=== PATIENT | female | born 1965 | race Caucasian/White ===

== ENCOUNTER 2017-08-09 08:49 | Emergency (ER) | END 2017-08-09 11:48 | disposition home or self-care (01) ==

== ENCOUNTER 2018-03-20 09:14 | Emergency (ER) | END 2018-03-20 10:49 | disposition home or self-care (01) ==

== ENCOUNTER 2018-05-14 15:52 | Emergency (ER) | END 2018-05-14 16:26 | disposition home or self-care (01) ==

== ENCOUNTER 2018-06-25 09:13 | Emergency (ER) | END 2018-06-25 10:50 | disposition home or self-care (01) ==

== ENCOUNTER 2018-07-27 17:24 | Emergency (ER) | payer MEDICAID ==
[~2018-07-27] VITALS: Ht 167.6 cm; Wt 88.0 kg
[~2018-07-27 17:24] MED LIST: BEN25 PO; CEPH-443 PO; DICL50TA11 PO; EPIN0.3P4 INJ; HYDR-4011 PO; IBUP-1542 PO; MELO15TA30 PO; NAPR-985 PO; NO MEDS; PRED20TA PO; SULF1TAB31 PO; TRAM50TA2 PO
[2018-07-27 17:29] VITALS: Ht 167.6 cm; Wt 88.0 kg
[2018-07-27] MEDS ORDERED: SOD CHLORIDE 0.9% 500 ML IV STA (21:29)
[2018-07-27] MEDS ORDERED: ONDANSETRON 4 MG INJ IV STA (21:29)
[2018-07-27] MEDS ORDERED: morphine 4 MG/ML VIAL IV STA (21:29)
[2018-07-27] MEDS ORDERED: MULTI PO (22:54)
[2018-07-28 00:23] VITALS: BP 151/80; PULSE 72; RESP 18
[2018-07-28] MEDS ORDERED: LORA-441 PO (00:37)
--- NOTE | 2018-07-28 00:44 | ERD ---
ER Documentation Chief Complaint Chief Complaint Complains of a headache with chest pain x 3 days HPI 53-year-old female, with a headache which has been for the past 3 days. She says she been under a lot of stress lately. Headache is mild to moderate intensity no exacerbating relieving factors. She denies any john chest pain bu t complains of palpitations when she feels stressed he denies any focal neurologic complaints. Denies any shortness of breath. Denies any other current issues. ROS All systems reviewed and are negative except as per history of present illness. Medications Home Meds Active Scripts Lorazepam* (Ativan*) 0.5 Mg Tablet, 0.5 MG PO Q8H PRN for ANXIETY, #10 TAB Prov:SIMRAN DAVILA 07/28/18 Ibuprofen* (Motrin*) 600 Mg Tab, 600 MG PO Q6, #20 TAB Prov:ARGENTINA CARRASCO MD 08/09/17 Reported Medications Multivitamins* (Theragran*) 1 Tab Tab, 1 TAB PO DAILY, TAB 07/27/18 Discontinued Reported Medications [No Meds] No Conflict Check 10/11/12 Discontinued Scripts Meloxicam* (Mobic*) 15 Mg Tablet, 15 MG PO DAILY, #30 TAB Prov:PAULINA GARCIA PA-C 06/25/18 Hydrocodone/Acetaminophen ([place] 5-325 Tablet) 1 Each Tablet, 1 TAB PO QHS PRN for PAIN, #7 TAB Prov:JORGE STARK MD 05/14/18 Sulfamethoxazole/Trimethoprim* (Bactrim Ds* Tablet) 1 Each Tablet, 1 TAB PO BID, #14 TAB Prov:JORGE STARK MD 05/14/18 Cephalexin* (Keflex*) 500 Mg Capsule, 500 MG PO BID for 7 Days, CAP Prov:JORGE STARK MD 05/14/18 Naproxen* (Naprosyn*) 500 Mg Tablet, 500 MG PO BID PRN for PAIN AND/OR INFLAMMATION, #30 TAB Prov:BOBBY BETH PA-C 03/20/18 Tramadol HCl (Tramadol HCl) 50 Mg Tablet, 50 MG PO Q6 PRN for PAIN, #20 TAB Prov:BOBBY BETH PA-C 03/20/18 Tramadol HCl (Tramadol HCl) 50 Mg Tablet, 50 MG PO Q4 PRN for PAIN, #15 TAB Prov:ARGENTINA CARRASCO MD 08/09/17 Diphenhydramine Hcl* (Benadryl*) 25 Mg Cap, 25 MG PO Q6, #15 CAP Prov:ARGENTINA CARRASCO MD 06/28/16 Prednisone* (Prednisone*) 20 Mg Tab, 60 MG PO DAILY for 3 Days, TAB Prov:ARGENTINA CARRASCO MD 06/28/16 Epinephrine (Epipen 2-De) 0.3 Mg/0.3 Ml Pen.injctr, 1 EA INJ ONCE PRN for ALLERGIC REACTION, #1 EA Prov:ARGENTINA CARRASCO MD 06/28/16 Diclofenac Sodium* (Diclofenac Sodium*) 50 Mg Tablet.dr, 50 MG PO BID, #30 TAB Prov:DOMO BALLARD NP 11/26/15 Tramadol HCl (Tramadol HCl) 50 Mg Tablet, 50 MG PO Q4 PRN for PAIN, #20 TAB Prov:ARGENTINA CARRASCO MD 06/30/15 Ibuprofen* (Motrin*) 600 Mg Tab, 600 MG PO Q6, #20 TAB Prov:ARGENTINA CARRASCO MD 06/30/15 Naproxen* (Naprosyn*) 500 Mg Tablet, 500 MG PO BID PRN for PAIN AND/OR INFLAMMATION, #30 TAB Prov:VIDAL NEVILLE 01/08/15 Allergies Allergies: Coded Allergies: No Known Allergies (Unverified Allergy, Mild, 07/27/18) PMhx/Soc Medical and Surgical Hx: pt denies Medical Hx, pt denies Surgical Hx History of Surgery: No Anesthesia Reaction: No Hx Neurological Disorder: No Hx Respiratory Disorders: No Hx Cardiac Disorders: No Hx Psychiatric Problems: No Hx Miscellaneous Medical Probl: Yes (arthritis) Hx Alcohol Use: No Hx Substance Use: No Hx Tobacco Use: No Smoking Status: Never smoker Physical Exam Vitals Vital Signs Date Temp Pulse Resp B/P (MAP) Pulse Ox O2 O2 Flow FiO2 Time Delivery Rate 07/28/18 72 18 151/80 96 Room Air 00:23 (103) 07/27/18 98.4 85 20 158/83 95 17:29 (108) Physical Exam Const: No acute distress Head: Atraumatic Eyes: Normal Conjunctiva ENT: Normal External Ears, Nose and Mouth. Neck: Full range of motion. No meningismus. Resp: Clear to auscultation bilaterally Cardio: Regular rate and rhythm, no murmurs Abd: Soft, non tender, non distended. Normal bowel sounds Skin: No petechiae or rashes Back: No midline or flank tenderness Ext: No cyanosis, or edema Neur: Awake and alert Psych: Normal Mood and Affect Result Diagram: 07/27/18215307/27/182153 Results 24 hrs Laboratory Tests Test 07/27/18 21:54 White Blood Count 6.9 10^3/ul Red Blood Count 4.65 10^6/ul Hemoglobin 11.6 g/dl Hematocrit 36.6 % Mean Corpuscular Volume 78.7 fl Mean Corpuscular Hemoglobin 24.9 pg Mean Corpuscular Hemoglobin Concent 31.7 g/dl Red Cell Distribution Width 14.1 % Platelet Count 195 10^3/UL Mean Platelet Volume 10.5 fl Immature Granulocytes % 0.300 % Neutrophils % 56.9 % Lymphocytes % 34.0 % Monocytes % 7.0 % Eosinophils % 1.7 % Basophils % 0.1 % Nucleated Red Blood Cells % 0.0 /100WBC Immature Granulocytes # 0.020 10^3/ul Neutrophils # 3.9 10^3/ul Lymphocytes # 2.3 10^3/ul Monocytes # 0.5 10^3/ul Eosinophils # 0.1 10^3/ul Basophils # 0.0 10^3/ul Nucleated Red Blood Cells # 0.0 10^3/ul Prothrombin Time 13.3 Sec Prothrombin Time Ratio 1.0 INR International Normalized Ratio 1.00 Activated Partial Thromboplast Time 27.2 Sec Sodium Level 144 mmol/L Potassium Level 3.9 mmol/L Chloride Level 103 mmol/L Carbon Dioxide Level 31 mmol/L Anion Gap 10 Blood Urea Nitrogen 10 mg/dl Creatinine 0.41 mg/dl Est Glomerular Filtrat Rate mL/min > 60 mL/min Glucose Level 204 mg/dl Calcium Level 9.0 mg/dl Troponin I < 0.012 ng/ml Current Medications Medications Dose Sig/Sandip Start Time Status Last (Trade) Ordered Route PRN Stop Time Admin Dose Reason Admin Sodium 500 ml @ Q1H STAT 07/27/18 DC Chloride 500 mls/hr IV 21:29 07/27/18 22:28 Ondansetron 4 mg ONCE STAT 07/27/18 DC HCl (Zofran IV 21:29 07/27/18 Inj) 21:31 Morphine 4 mg ONCE STAT 07/27/18 DC Sulfate IV 21:29 07/27/18 (morphine) 21:31 Procedures/MDM EKG: Rate/Rhythm: [Normal Sinus Rhythm] QRS, ST, T-waves: [No changes consistent w/ acute ischemia] Impression: [No evidence of ischemia or arrhythmia] Chest X-ray 1V Interpreted by me: Soft Tissue: No acute abnormalities Bones: No acute abnormalities Mediastinum/Cardiac Silhouette/Lungs: [No acute abnormalities] Medical decision making: Patient's neurologic symptoms have stabilized while they have been evaluated in the department and are appropriate for outpatient work up. No e/o meningitis, intracranial bleed, seizure, stroke. Patient's thoracic symptoms have stabilized while in the department and are stable for outpatient follow up. Exam and work up not consistent w/ ischemia, arrhythmia, PE or dissection. Departure Diagnosis: Primary Impression: Headache Headache type: unspecified Headache chronicity pattern: unspecified pattern Intractability: not intractable Qualified Codes: R51 - Headache Condition: Stable Patient Instructions: Self-Care for Headaches SIMRAN DAVILA Jul 28, 2018 00:44
[2018-08-06] MEDS ORDERED: ATEN-51 PO (17:25)
== END 2018-07-28 00:53 | disposition home or self-care (01) ==
LOC: E/R 17:24
DX: R51 Headache (principal)
CPT/HCPCS: 36415; 70450; 71045; 80048; 84484; 85025; 85610; 85730; 93005; J7040; Z7502

== ENCOUNTER 2018-08-03 13:03 | Emergency (ER) | payer MEDICAID ==
[~2018-08-03] VITALS: Wt 85.0 kg
[~2018-08-03 13:03] MED LIST changes: -BEN25 PO; -CEPH-443 PO; -DICL50TA11 PO; -EPIN0.3P4 INJ; -HYDR-4011 PO; +LORA-441 PO; -MELO15TA30 PO; +MULTI PO; -NAPR-985 PO; -NO MEDS; -PRED20TA PO; -SULF1TAB31 PO; -TRAM50TA2 PO
[2018-08-03 13:13] VITALS: BP 136/80; PULSE 80; RESP 16
[2018-08-03] MEDS ORDERED: KETOROLAC 30 MG INJ IM STA (13:39)
[2018-08-03] MEDS ORDERED: IBUP-1542 PO (13:53)
[2018-08-03] MEDS ORDERED: CYCL10TA7 PO (13:53)
--- NOTE | 2018-08-03 13:59 | ERD ---
ER Documentation Chief Complaint Chief Complaint bilat arm/ leg pains x3wks. 'muscle pain'. no meds taken. amb w steady gait HPI This 53-year-old female presents with pain in her bilateral external hip area for the last 3 weeks. Denies any history of injury. She has a fevers, vomiting, shortness of breath or chest pain. She denies any inciting events or trauma. Patient has been here several times for complaints, mostly musculoskeletal as well as primary care complaints. She denies any primary care doctor. ROS All systems reviewed and are negative except as per history of present illness. Medications Home Meds Active Scripts Cyclobenzaprine Hcl* (Cyclobenzaprine Hcl*) 10 Mg Tablet, 10 MG PO TID, #20 TAB Prov:ARGENTINA CARRASCO MD 08/03/18 Ibuprofen* (Motrin*) 600 Mg Tab, 600 MG PO Q6, #30 TAB Prov:ARGENTINA CARRASCO MD 08/03/18 Lorazepam* (Ativan*) 0.5 Mg Tablet, 0.5 MG PO Q8H PRN for ANXIETY, #10 TAB Prov:SIMRAN DAVILA 07/28/18 Ibuprofen* (Motrin*) 600 Mg Tab, 600 MG PO Q6, #20 TAB Prov:ARGENTINA CARRASCO MD 08/09/17 Reported Medications Multivitamins* (Theragran*) 1 Tab Tab, 1 TAB PO DAILY, TAB 07/27/18 Discontinued Reported Medications [No Meds] No Conflict Check 10/11/12 Discontinued Scripts Meloxicam* (Mobic*) 15 Mg Tablet, 15 MG PO DAILY, #30 TAB Prov:PAULINA GARCIA PA-C 06/25/18 Hydrocodone/Acetaminophen ([place] 5-325 Tablet) 1 Each Tablet, 1 TAB PO QHS PRN f or PAIN, #7 TAB Prov:JORGE STARK MD 05/14/18 Sulfamethoxazole/Trimethoprim* (Bactrim Ds* Tablet) 1 Each Tablet, 1 TAB PO BID, #14 TAB Prov:JORGE STARK MD 05/14/18 Cephalexin* (Keflex*) 500 Mg Capsule, 500 MG PO BID for 7 Days, CAP Prov:JORGE STARK MD 05/14/18 Naproxen* (Naprosyn*) 500 Mg Tablet, 500 MG PO BID PRN for PAIN AND/OR INFLAMMATION, #30 TAB Prov:BOBBY BETH PA-C 03/20/18 Tramadol HCl (Tramadol HCl) 50 Mg Tablet, 50 MG PO Q6 PRN for PAIN, #20 TAB Prov:BOBBY BETH PA-C 03/20/18 Tramadol HCl (Tramadol HCl) 50 Mg Tablet, 50 MG PO Q4 PRN for PAIN, #15 TAB Prov:ARGENTINA CARRASCO MD 08/09/17 Diphenhydramine Hcl* (Benadryl*) 25 Mg Cap, 25 MG PO Q6, #15 CAP Prov:ARGENTINA CARRASCO MD 06/28/16 Prednisone* (Prednisone*) 20 Mg Tab, 60 MG PO DAILY for 3 Days, TAB Prov:ARGENTINA CARRASCO MD 06/28/16 Epinephrine (Epipen 2-De) 0.3 Mg/0.3 Ml Pen.injctr, 1 EA INJ ONCE PRN for ALLERGIC REACTION, #1 EA Prov:ARGENTINA CARRASCO MD 06/28/16 Diclofenac Sodium* (Diclofenac Sodium*) 50 Mg Tablet.dr, 50 MG PO BID, #30 TAB Prov:DOMO BALLARD NP 11/26/15 Tramadol HCl (Tramadol HCl) 50 Mg Tablet, 50 MG PO Q4 PRN for PAIN, #20 TAB Prov:ARGENTINA CARRASCO MD 06/30/15 Ibuprofen* (Motrin*) 600 Mg Tab, 600 MG PO Q6, #20 TAB Prov:ARGENTINA CARRASCO MD 06/30/15 Naproxen* (Naprosyn*) 500 Mg Tablet, 500 MG PO BID PRN for PAIN AND/OR INFLAMMATION, #30 TAB Prov:VIDAL NEVILLE 01/08/15 Allergies Allergies: Coded Allergies: No Known Allergies (Unverified Allergy, Mild, 07/27/18) PMhx/Soc Medical and Surgical Hx: pt denies Medical Hx, pt denies Surgical Hx History of Surgery: No Anesthesia Reaction: No Hx Neurological Disorder: No Hx Respiratory Disorders: No Hx Cardiac Disorders: No Hx Psychiatric Problems: No Hx Miscellaneous Medical Probl: Yes (arthritis) Hx Alcohol Use: No Hx Substance Use: No Hx Tobacco Use: No Smoking Status: Never smoker FmHx Family History: No diabetes, No coronary disease, No other Physical Exam Vitals Vital Signs Date Temp Pulse Resp B/P (MAP) Pulse Ox O2 O2 Flow FiO2 Time Delivery Rate 08/03/18 98.5 80 16 136/80 97 13:13 (98) Physical Exam Const: No acute distress Head: Atraumatic Eyes: Normal Conjunctiva ENT: Normal External Ears, Nose and Mouth. Neck: Full range of motion. No meningismus. Resp: Clear to auscultation bilaterally Cardio: Regular rate and rhythm, no murmurs Abd: Soft, non tender, non distended. Normal bowel sounds Skin: No petechiae or rashes Back: No midline or flank tenderness Ext: No cyanosis, or edema. Minimal tenderness in the bilateral greater trochanter area. No erythema, warmth. Patient is ambulatory without deficits or weakness. Neur: Awake and alert Psych: Normal Mood and Affect Results 24 hrs Current Medications Medications Dose Sig/Sandip Start Time Status Last (Trade) Ordered Route PRN Stop Time Admin Dose Reason Admin Ketorolac 30 mg ONCE STAT 08/03/18 DC 08/03/18 Tromethamine IM 13:39 13:50 (Toradol) 08/03/18 13:40 Procedures/MDM Patient presents with bilateral external hip pain, likely tendinitis or bursitis without signs of bacterial infection, deficits, weakness, additional concerning symptoms. No current signs or symptoms to suggest cellulitis, rhabdomyolysis, ischemia, deficits. She was given Toradol 30 mg IM and will be treated with ibuprofen, Flexeril, primary care follow-up and return precautions. She is referred to local primary care doctors for further evaluation and treatment and primary care. The patient was stable with no new complaints during the ER course. Clinically, there is no current evidence to suggest meningitis, sepsis, acute abdomen, pneumonia, stroke, acute coronary syndrome, pulmonary embolism, aortic dissection or any other emergent condition appearing to require further evaluation or hospitalization. Patient counseled regarding my diagnostic impression and care plan. Prior to discharge all questions answered. Pt agrees with treatment plan and understands strict return precautions. Pt is instructed to follow up with primary care provider within 24-48 hours. Precautionary instructions provided including instructions to return to the ER if not improving or for any worsening or changing symptoms or concerns. Departure Diagnosis: Primary Impression: Myalgia Additional Impression: Pain Condition: Stable Patient Instructions: Back Pain (Acute Or Chronic), Hip Strain [facility] Usted se raza hecho un examen mdico de control que le indica que no est en edgardo condicin que requiera tratamiento urgente en el Departamento de Emergencia. Un estudio ms profundo y el tratamiento de conde condicin pueden esperar sin ningn riesgo hasta que usted sea atendida/o en el consultorio de conde mdico o edgardo clnica. Es responsabilidad suya arreglar edgardo malvin para el seguimiento del rc. MANEJO DE CONDICIONES NO URGENTES EN EL FUTURO 1) Si usted tiene un mdico de atencin primaria: Usted debera llamar a conde mdico de atencin primaria antes de venir al departamento de emergencia. Despus de las horas de consultorio, conde doctor o conde asociado/a est disponible por telfono. El mdico o enfermero de elvia en el servicio telefnico puede asesorarle por eunice medio para atender el problema, o rc contrario se puede programar edgardo malvin. 2) Si usted no tiene un mdico de atencin primaria: Llame al mdico o clnica de referencia que aparece abajo [place] las horas de consultorio para hacer edgardo malvin para que le vean. CLINICAS: [facility] [id number] [facility] [phone] [address] [facility] [phone] [address] [facility]. [place] [id number] [phone] [place] [id number] [phone] [facility] [phone] Additional Instructions: Cheque otro vez con conde doctor primario en el proximo [place] or regresa para mas o nueva simptomas. ARGENTINA CARRASCO MD Aug 03, 2018 13:59
[2018-08-06] MEDS ORDERED: ATEN-51 PO (17:25)
== END 2018-08-03 14:09 | disposition home or self-care (01) ==
LOC: FTE 13:03
DX: M79.18 Myalgia, other site (principal)
CPT/HCPCS: 96372; J1885; Z7502

== ENCOUNTER 2018-08-09 23:26 | Emergency (ER) | payer MEDICAID ==
[~2018-08-09] VITALS: Ht 154.9 cm; Wt 84.6 kg
[~2018-08-09 23:26] MED LIST changes: +ATEN-51 PO; +CYCL10TA7 PO
[2018-08-09 23:36] VITALS: Ht 154.9 cm; Wt 84.6 kg
[2018-08-10] MEDS ORDERED: SOD CHLORIDE 0.9% 1,000 ML IV STA (00:22)
[2018-08-10] MEDS ORDERED: ACETAMINOPHEN 500 MG TAB PO STA (00:22)
--- NOTE | 2018-08-10 00:32 | ERD ---
ER Documentation Chief Complaint Chief Complaint COMBS WITH PALPITATIONS ON/OFF X2-3WKS HPI During the patient's encounter translation services were utilized Language: [French] Source: [video] 53-year-old female who presents with 3 weeks of symptoms that include gradual onset throbbing bitemporal bandlike headache that is 5 out of 10. This is associated with occasional palpitations. No chest pain or pressure no fevers or chills, no hematemesis or melena. Symptoms are moderate at this time. She has not been taking any medication to control the symptoms. ROS All systems reviewed and are negative except as per history of present illness. Medications Home Meds Active Scripts Ibuprofen* (Motrin*) 600 Mg Tab, 600 MG PO Q6H PRN for PAIN AND OR ELEVATED TEMP, #30 TAB Prov:ANKITA IRBY MD 08/10/18 Atenolol* (Atenolol*) 25 Mg Tablet, 25 MG PO DAILY, #30 TAB Prov:JOGRE STARK MD 08/06/18 Cyclobenzaprine Hcl* (Cyclobenzaprine Hcl*) 10 Mg Tablet, 10 MG PO TID, #20 TAB Prov:ARGENTINA CARRASCO MD 08/03/18 Ibuprofen* (Motrin*) 600 Mg Tab, 600 MG PO Q6, #30 TAB Prov:ARGENTINA CARRASCO MD 08/03/18 Lorazepam* (Ativan*) 0.5 Mg Tablet, 0.5 MG PO Q8H PRN for ANXIETY, #10 TAB Prov:SIMRAN DAVILA 07/28/18 Ibuprofen* (Motrin*) 600 Mg Tab, 600 MG PO Q6, #20 TAB Prov:ARGENTINA CARRASCO MD 08/09/17 Reported Medications Multivitamins* (Theragran*) 1 Tab Tab, 1 TAB PO DAILY, TAB 07/27/18 Allergies Allergies: Coded Allergies: No Known Allergies (Unverified Allergy, Mild, 07/27/18) PMhx/Soc Medical and Surgical Hx: pt denies Medical Hx, pt denies Surgical Hx History of Surgery: No Anesthesia Reaction: No Hx Neurological Disorder: No Hx Respiratory Disorders: No Hx Cardiac Disorders: No Hx Psychiatric Problems: No Hx Miscellaneous Medical Probl: Yes (arthritis) Hx Alcohol Use: No Hx Substance Use: No Hx Tobacco Use: No Smoking Status: Never smoker FmHx Family History: No diabetes Physical Exam Vitals Vital Signs Date Temp Pulse Resp B/P (MAP) Pulse Ox O2 O2 Flow FiO2 Time Delivery Rate 08/10/18 62 18 134/58 100 Room Air 02:11 (83) 08/09/18 97.9 67 18 137/78 98 23:36 (97) Physical Exam General: Well developed, well nourished, no acute distress Head: Normocephalic, atraumatic. Eyes: Pupils equally reactive, EOM intact ENT: Moist mucous membranes Neck: Supple, no lymphadenopathy Respiratory: Lungs clear bilaterally, no distress Cardiovascular: RRR, no murmurs, rubs, or gallops Abdominal: Soft, non-tender, non-distended, no peritoneal signs : Deferred MSK: No edema, no unilateral swelling, 5/5 strength Neurologic: Alert and oriented, moving all extremities, normal speech, no focal weakness, no cerebellar signs Skin: No rash Psych: Normal mood Result Diagram: 08/10/182 08/10/18 0031 Results 24 hrs Laboratory Tests Test 08/10/18 00:31 08/10/18 00:32 Sodium Level 139 mmol/L Potassium Level 3.9 mmol/L Chloride Level 103 mmol/L Carbon Dioxide Level 29 mmol/L Anion Gap 7 Blood Urea Nitrogen 8 mg/dl Creatinine 0.46 mg/dl Est Glomerular Filtrat Rate mL/min > 60 mL/min Glucose Level 164 mg/dl Calcium Level 9.3 mg/dl Troponin I < 0.012 ng/ml White Blood Count 6.7 10^3/ul Red Blood Count 4.93 10^6/ul Hemoglobin 12.4 g/dl Hematocrit 39.1 % Mean Corpuscular Volume 79.3 fl Mean Corpuscular Hemoglobin 25.2 pg Mean Corpuscular Hemoglobin Concent 31.7 g/dl Red Cell Distribution Width 13.9 % Platelet Count 186 10^3/UL Mean Platelet Volume 10.2 fl Immature Granulocytes % 0.200 % Neutrophils % 54.6 % Lymphocytes % 37.0 % Monocytes % 5.9 % Eosinophils % 2.0 % Basophils % 0.3 % Nucleated Red Blood Cells % 0.0 /100WBC Immature Granulocytes # 0.010 10^3/ul Neutrophils # 3.6 10^3/ul Lymphocytes # 2.5 10^3/ul Monocytes # 0.4 10^3/ul Eosinophils # 0.1 10^3/ul Basophils # 0.0 10^3/ul Nucleated Red Blood Cells # 0.0 10^3/ul Current Medications Medications Dose Sig/Sandip Start Time Status Last (Trade) Ordered Route PRN Stop Time Admin Dose Reason Admin Sodium 1,000 ml @ Q1H STAT 08/10/18 DC 08/10/18 Chloride 1,000 mls/hr IV 00:22 00:37 08/10/18 01:21 1,000 mg ONCE STAT 08/10/18 DC 08/10/18 Acetaminophen PO 00:22 00:38 (Tylenol 08/10/18 00:23 Tab) Procedures/MDM EKG, MONITORS, & DIAGNOSTIC IMAGING: EKG: I reviewed and interpreted a 12-lead EKG. Rhythm: Normal sinus rhythm ST Changes: No contiguous ST segment elevations T waves: No contiguous T wave inversions Impression: No evidence of acute cardiac ischemia. CT brain: No acute process LAB INTERPRETATION: * No evidence of infectious process or cardiac ischemia noted MEDICAL DECISION MAKING: Patient symptoms are subacute for 3 weeks and consistent with mild headache with palpitations. The patient's headache is unlikely related to serious etiology. The patient does not exhibit any clinical signs or symptoms, and has no risk factors to suggest headache etiology such as subarachnoid hemorrhage, acute vertebral or carotid dissection, intracranial mass, epidural, subdural hematoma, dural venous sinus thrombosis, giant cell arteritis, or pseudotumor cerebri. Symptoms do not seem to be consistent with serious etiology. However CT of the brain to rule out mass would be appropriate. The palpitations again are nonspecific. Patient would benefit from evaluation for possible anemia. Low concern for cardiac etiology though EKG and troponin would also be appropriate. Patient strongly recommended to have primary care follow-up given subacute nature of her presentation. ER COURSE: * Patient's symptoms improved. Patient's amatory testing and diagnostic imaging are unrevealing. * At this point the patient is safe for discharge with close outpatient primary care follow-up. Return precautions were discussed and understood. CONSULTATION: None DISPOSITION PLAN: The patient does not have an identifiable emergent medical condition that warrants inpatient hospitalization at this time. The patient is deemed safe for discharge with outpatient follow-up. We discussed follow up with the patient's primary care doctor within 24 to 48 hours as needed. We also discussed return to the emergency room for worsening symptoms or worsening condition. Outpatient referral: None required Discharge Medications: None required Departure Diagnosis: Primary Impression: Palpitations Additional Impression: Headache Headache type: unspecified Headache chronicity pattern: chronic headache Intractability: not intractable Qualified Codes: R51 - Headache Condition: Stable ANKITA IRBY MD Aug 10, 2018 00:32
[2018-08-10] MEDS ORDERED: IBUP-1542 PO (02:51)
[2018-08-10 03:07] VITALS: BP 138/80; PULSE 62; RESP 14
[2018-08-11] MEDS ORDERED: FIORICET PO (22:52)
== END 2018-08-10 03:07 | disposition home or self-care (01) ==
LOC: E/R 23:26
DX: R00.2 Palpitations (principal)
CPT/HCPCS: 36415; 70450; 80048; 84484; 85025; 93005; J7030; Z7502; Z7610

== ENCOUNTER 2018-08-11 19:21 | Emergency (ER) | payer MEDICAID ==
[~2018-08-11] VITALS: Ht 152.4 cm; Wt 86.0 kg
[2018-08-11 19:26] VITALS: BP 137/70; PULSE 80; RESP 20; Ht 152.4 cm; Wt 86.0 kg
[2018-08-11] MEDS ORDERED: KETOROLAC 30 MG INJ IM STA (21:18)
[2018-08-11] MEDS ORDERED: FIORICET PO (22:52)
--- NOTE | 2018-08-12 07:28 | ERD ---
ER Documentation Chief Complaint Chief Complaint COMBS WITH SOB & INTERMITTENT CHEST DISCOMFORT X 3 DAYS HPI 53-year-old female presents for headache, shortness of breath, chest discomfort times 3 days. She states that the headache is diffuse rated at 8/10, pulsating. there is also associated arm pain. Denies any fevers or chills. Denies nausea or vomiting. Patient denies any chest pain currently. ROS All systems reviewed and are negative except as per history of present illness. Medications Home Meds Active Scripts Ibuprofen* (Motrin*) 400 Mg Tab, 400 MG PO Q6H PRN for PAIN AND OR ELEVATED TEMP, #30 TAB Prov:KATERINA AZEVEDO PA-C 08/16/18 Acetamin/Butalbital/Caffeine* (Fioricet*) [id number] Tab, 1 TAB PO Q6H PRN for PAIN, #30 TAB Prov:STEPHANIE KONG DO 08/11/18 Ibuprofen* (Motrin*) 600 Mg Tab, 600 MG PO Q6H PRN for PAIN AND OR ELEVATED TEMP, #30 TAB Prov:ANKITA IRBY MD 08/10/18 Atenolol* (Atenolol*) 25 Mg Tablet, 25 MG PO DAILY, #30 TAB Prov:JORGE STARK MD 08/06/18 Cyclobenzaprine Hcl* (Cyclobenzaprine Hcl*) 10 Mg Tablet, 10 MG PO TID, #20 TAB Prov:ARGENTINA CARRASCO MD 08/03/18 Ibuprofen* (Motrin*) 600 Mg Tab, 600 MG PO Q6, #30 TAB Prov:ARGENTINA CARRASCO MD 08/03/18 Lorazepam* (Ativan*) 0.5 Mg Tablet, 0.5 MG PO Q8H PRN for ANXIETY, #10 TAB Prov:SIMRAN DAVILA 07/28/18 Ibuprofen* (Motrin*) 600 Mg Tab, 600 MG PO Q6, #20 TAB Prov:ARGENTINA CARRASCO MD 08/09/17 Reported Medications Multivitamins* (Theragran*) 1 Tab Tab, 1 TAB PO DAILY, TAB 07/27/18 Allergies Allergies: Coded Allergies: No Known Allergies (Unverified Allergy, Mild, 08/11/18) PMhx/Soc Medical and Surgical Hx: pt denies Medical Hx, pt denies Surgical Hx History of Surgery: No Anesthesia Reaction: No Hx Neurological Disorder: No Hx Respiratory Disorders: No Hx Cardiac Disorders: No Hx Psychiatric Problems: No Hx Miscellaneous Medical Probl: Yes (arthritis) Hx Alcohol Use: No Hx Substance Use: No Hx Tobacco Use: No Smoking Status: Never smoker Physical Exam Vitals ital Signs Date Temp Pulse Resp B/P (MAP) Pulse Ox O2 O2 Flow FiO2 Time Delivery Rate 08/11/18 97.1 80 20 137/70 97 19:26 (92) Physical Exam Const: No acute distress Head: Atraumatic, no temporal area tenderness to palpation Eyes: Normal Conjunctiva, pupils equal, round, reactive to light bilaterally ENT: Normal External Ears, bilateral tympanic membrane intact without erythema or bulging noted, Nose and Mouth. No tonsillar swelling or exudate noted Neck: Full range of motion. No meningismus, no bruits noted Resp: Clear to auscultation bilaterally Cardio: Regular rate and rhythm, no murmurs, bilateral radial and dorsalis pedis pulses intact Skin: No petechiae or rashes Ext: No cyanosis, or edema, 5 out of 5 muscular bilateral upper and lower extremities Neur: Awake and alert, bilateral upper and lower extremity sensation intact Psych: Normal Mood and Affect Results 24 hrs Current Medications Medications Dose Sig/Sandip Start Time Status Last (Trade) Ordered Route PRN Stop Time Admin Dose Reason Admin Ketorolac 30 mg ONCE STAT 08/11/18 DC 08/11/18 Tromethamine IM 21:18 21:41 (Toradol) 08/11/18 21:19 Procedures/MDM Medical Decision Making: Differential diagnosis includes but not limited to primary headache, subarachnoid hemorrhage, meningitis, temporal arteritis, glaucoma, hypertension, cerebral ischemia, carotid or vertebral arterial dissection, brain tumor. Patient appeared well on physical examination, nontoxic appearing. No history of fever. There is low suspicion for meningitis. Given patient's age and no temporal area tenderness to palpation, low suspicion for temporal arteritis. Patient has no vision changes and pupils are reactive bilaterally, low suspicion for glaucoma. There is also no focal neurologic deficits to suggest a brain tumor. Patient has normal sensation and muscle strength, low suspicion for cerebral ischemia. Due to the chest discomfort and EKG was done which showed normal sinus rhythm. There is no ST or T wave changes Patient was given Toradol in the ER with relief symptoms. Due to the severity of the headache and the worsening nature of the headache, head CT was done Head CT was unremarkable for acute pathology. Patient given prescription for Fioricet. Advised continue with Motrin that she has at home. Patient advised to follow up with PCP in 1-2 days. Patient advised to return to ED for new or worsening symptoms. Patient stable on discharge from the ED. Disclaimer: Inadvertent spelling and grammatical errors are likely due to EHR/dictation software use and do not reflect on the overall quality of patient care. Also, please note that the electronic time recorded on this note does not necessarily reflect the actual time of the patient encounter. Departure Diagnosis: Primary Impression: Headache Condition: Fair Patient Instructions: Self-Care for Headaches Referrals: [facility] YOU HAVE RECEIVED A MEDICAL SCREENING EXAM AND THE RESULTS INDICATE THAT YOU DO NOT HAVE A CONDITION THAT REQUIRES URGENT TREATMENT IN THE EMERGENCY DEPARTMENT. FURTHER EVALUATION AND TREATMENT OF YOUR CONDITION CAN WAIT UNTIL YOU ARE SEEN IN YOUR DOCTORS OFFICE WITHIN THE NEXT 1-2 DAYS. IT IS YOUR RESPONSIBILITY TO MAKE AN APPOINTMENT FOR FOLOW-UP CARE. IF YOU HAVE A PRIMARY DOCTOR --you should call your primary doctor and schedule an appointment IF YOU DO NOT HAVE A PRIMARY DOCTOR YOU CAN CALL OUR PHYSICIAN REFERRAL HOTLINE AT IF YOU CAN NOT AFFORD TO SEE A PHYSICIAN YOU CAN CHOSE FROM THE FOLLOWING [facility] [address] [facility]. [facility] [address] [facility]. [facility] [address] [facility]. [facility] [address] [facility]. [facility] [address] [facility]. [facility]. [address] Additional Instructions: Llame al doctor MAANA y lorraine edgardo NADINE PARA DENTRO DE 1-2 ESQUIVEL.Dgale a la secretaria que nosotros le instruimos hacer esta nadine.Avise o llame si conde condicin se empeora antes de la nadine. Regresa aqui si peor o no mejor. STEPHANIE KONG DO Aug 12, 2018 07:28
== END 2018-08-11 23:01 | disposition home or self-care (01) ==
LOC: FTE 19:21
DX: R51 Headache (principal)
CPT/HCPCS: 70450; 93005; 96372; J1885; Z7502

== ENCOUNTER 2018-08-16 08:10 | Emergency (ER) | payer MEDICAID ==
[~2018-08-16] VITALS: Ht 167.6 cm; Wt 84.7 kg
[~2018-08-16 08:10] MED LIST changes: +FIORICET PO
[2018-08-16 08:11] VITALS: BP 162/81; PULSE 75; RESP 20; Ht 167.6 cm; Wt 84.7 kg
[2018-08-16] MEDS ORDERED: KETOROLAC 30 MG INJ IM STA (09:35)
[2018-08-16] MEDS ORDERED: IBUP-1561 PO (09:41)
--- NOTE | 2018-08-16 10:11 | ERD ---
ER Documentation Chief Complaint Chief Complaint Complains of severe headache x 1 week HPI 53-year-old female presents to the emergency department with intermittent episodes of moderate to severe global headache for the past month. She denies neuro deficits, nausea vomiting. Patient has been seen at this facility numerous times in this past month for same complaint and has already followed up with her primary care physician, patient states that her primary care physician has given her Fioricet, she states last dose was yesterday and it did not provide her relief. Patient states that last time she was here she was given a Toradol injection and that helped her therefore she presents again today for that.. ROS All systems reviewed and are negative except as per history of present illness. Medications Home Meds Active Scripts Ibuprofen* (Motrin*) 400 Mg Tab, 400 MG PO Q6H PRN for PAIN AND OR ELEVATED TEMP, #30 TAB Prov:KATERINA AZEVEDO PA-C 08/16/18 Acetamin/Butalbital/Caffeine* (Fioricet*) [id number] Tab, 1 TAB PO Q6H PRN for PAIN, #30 TAB Prov:STEPHANIE KONG DO 08/11/18 Ibuprofen* (Motrin*) 600 Mg Tab, 600 MG PO Q6H PRN for PAIN AND OR ELEVATED TEMP, #30 TAB Prov:ANKITA IRBY MD 08/10/18 Atenolol* (Atenolol*) 25 Mg Tablet, 25 MG PO DAILY, #30 TAB Prov:JORGE STARK MD 08/06/18 Cyclobenzaprine Hcl* (Cyclobenzaprine Hcl*) 10 Mg Tablet, 10 MG PO TID, #20 TAB Prov:ARGENTINA CARRASCO MD 08/03/18 Ibuprofen* (Motrin*) 600 Mg Tab, 600 MG PO Q6, #30 TAB Prov:ARGENTINA CARRASCO MD 08/03/18 Lorazepam* (Ativan*) 0.5 Mg Tablet, 0.5 MG PO Q8H PRN for ANXIETY, #10 TAB Prov:SIMRAN DAVILA 07/28/18 Ibuprofen* (Motrin*) 600 Mg Tab, 600 MG PO Q6, #20 TAB Prov:ARGENTINA CARRASCO MD 08/09/17 Reported Medications Multivitamins* (Theragran*) 1 Tab Tab, 1 TAB PO DAILY, TAB 07/27/18 Allergies Allergies: Coded Allergies: No Known Allergies (Unverified Allergy, Mild, 08/11/18) PMhx/Soc History of Surgery: No Anesthesia Reaction: No Hx Neurological Disorder: No Hx Respiratory Disorders: No Hx Cardiac Disorders: No Hx Psychiatric Problems: No Hx Miscellaneous Medical Probl: Yes (arthritis) Hx Alcohol Use: No Hx Substance Use: No Hx Tobacco Use: No Smoking Status: Never smoker Physical Exam Vitals Vital Signs Date Temp Pulse Resp B/P (MAP) Pulse Ox O2 O2 Flow FiO2 Time Delivery Rate 08/16/18 75 20 162/81 99 08:11 (108) Physical Exam Const: No acute distress Head: Atraumatic Eyes: Normal Conjunctiva ENT: Normal External Ears, Nose and Mouth. Neck: Full range of motion. No meningismus. Resp: Clear to auscultation bilaterally Cardio: Regular rate and rhythm, no murmurs Abd: Soft, non tender, non distended. Normal bowel sounds Skin: No petechiae or rashes Back: No midline or flank tenderness Ext: No cyanosis, or edema Neur: Awake and alert Psych: Normal Mood and Affect Results 24 hrs Current Medications Medications Dose Sig/Sandip Start Time Status Last (Trade) Ordered Route PRN Stop Time Admin Dose Reason Admin Ketorolac 30 mg ONCE STAT 08/16/18 DC 08/16/18 Tromethamine IM 09:35 09:48 (Toradol) 08/16/18 09:36 Procedures/MDM 53-year-old female with frequent headaches in this past month presents with global headache, likely to be a tension headache. My differential diagnoses include tension, migraine, and cluster headache, overuse medication headache, subarachnoid hemorrhage, meningitis, stroke. Pain relief with Toradol was given in the ED with some improvement. Neurology exam was normal and I don't recommend a CT scan or MRI at this time, patient's last CT was this past week and normal. hemodynamically stable and neurovascularly intact. Discussed to follow up with a primary care physician to get a referral for a neurologist and to get an MRI. Return to the ER if condition worsens or not improving as expected. Patient agreed and understood this plan. CT head on 08/11/18 1. No evidence of acute intracranial pathology. 2. 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 3. The brain is otherwise unremarkable and normal in appearance. Departure Diagnosis: Primary Impression: Headache Condition: Stable Patient Instructions: Understanding Headache Pain, Preventing Tension-type Headaches , Managing Tension-type Headache Symptoms Referrals: NO PRIMARY,CARE PHYSICIAN (PCP) Additional Instructions: Consulte a conde mdico de atencin primaria maana para obtener edgardo referencia para emre a un neurlogo y MRI Regrese a estas instalaciones si no se mejora gurwinder esperbamos o gurwinder le dijimos. KATERINA AZEVEDO PA-C Aug 16, 2018 10:11
== END 2018-08-16 09:59 | disposition home or self-care (01) ==
LOC: FTE 08:10
DX: R51 Headache (principal)
CPT/HCPCS: 96372; J1885; Z7502

== ENCOUNTER 2018-09-13 18:50 | Emergency (ER) | payer MEDICAID ==
[~2018-09-13] VITALS: Ht 152.4 cm; Wt 87.4 kg
[~2018-09-13 18:50] MED LIST changes: +IBUP-1561 PO
[2018-09-13 18:57] VITALS: Ht 152.4 cm; Wt 87.4 kg
[2018-09-13] MEDS ORDERED: NITR-58 PO (23:03)
[2018-09-13] MEDS ORDERED: NAPR-985 PO (23:03)
[2018-09-13] MEDS ORDERED: ASCO500C7 PO (23:07)
[2018-09-13] MEDS ORDERED: FERR220S19 PO (23:07)
[2018-09-13] MEDS ORDERED: KETOROLAC 30 MG INJ IM STA (23:11)
[2018-09-13] MEDS ORDERED: NITROFURANTOIN (SR) 100 MG CAP PO ONE (23:30)
--- NOTE | 2018-09-14 00:26 | ERD ---
ER Documentation Chief Complaint Chief Complaint generalize body aches x 2 weeks HPI 53 year-old [female] coming in today with Chief Complaint: Body aches History of Present Illness: Daughter bring patient in today with body aches for 2 weeks. Associated symptoms include fatigue, shortness of breath, intermittent palpitations. Denies sick contacts. Tolerating p.o. fluids and food without difficulty. Last dose of ibuprofen at 6 AM. Review of systems: All systems were reviewed and are negative except for what is indicated in the history of present illness. Past Medical History: [Negative for hypertension, diabetes or other medical problems] Social History: [Patient denies tobacco, alcohol, elicit drug use] Medications: [None] Allergies: [NKDA] Social Concerns: Denies ROS All systems reviewed and are negative except as per history of present illness. Medications Home Meds Active Scripts Ascorbic Acid* (Vitamin C*) 500 Mg Capsule.sa, 500 MG PO DAILY for better iron absorbtion, #30 CAP take with iron daily; vitamin c will assist with better irob absorbtion Prov:NELSON ABRAMS NP 09/13/18 Ferrous Sulfate (Ferrous Sulfate) 220 Mg/5 Ml Solution, 220 MG PO DAILY for 30 Days Prov:NELSON ABRAMS NP 09/13/18 Naproxen* (Naprosyn*) 500 Mg Tablet, 500 MG PO BID PRN for PAIN AND/OR INFLAMMATION, #30 TAB Prov:NELSNO ABRAMS NP 09/13/18 Nitrofurantoin Monohyd Macrocr* (Macrobid*) 100 Mg Capsr, 100 MG PO HS for urine infection for 7 Days, CAP Prov:NELSON ABRAMS NP 09/13/18 Ibuprofen* (Motrin*) 400 Mg Tab, 400 MG PO Q6H PRN for PAIN AND OR ELEVATED TEMP, #30 TAB Prov:KATERINA AZEVEDO PA-C 08/16/18 Acetamin/Butalbital/Caffeine* (Fioricet*) [id number] Tab, 1 TAB PO Q6H PRN for PAIN, #30 TAB Prov:STEPHANIE KONG DO 08/11/18 Ibuprofen* (Motrin*) 600 Mg Tab, 600 MG PO Q6H PRN for PAIN AND OR ELEVATED TEM P, #30 TAB Prov:ANKITA IRBY MD 08/10/18 Atenolol* (Atenolol*) 25 Mg Tablet, 25 MG PO DAILY, #30 TAB Prov:JOREG STARK MD 08/06/18 Cyclobenzaprine Hcl* (Cyclobenzaprine Hcl*) 10 Mg Tablet, 10 MG PO TID, #20 TAB Prov:ARGENTINA CARRASCO MD 08/03/18 Ibuprofen* (Motrin*) 600 Mg Tab, 600 MG PO Q6, #30 TAB Prov:ARGENTINA CARRASCO MD 08/03/18 Lorazepam* (Ativan*) 0.5 Mg Tablet, 0.5 MG PO Q8H PRN for ANXIETY, #10 TAB Prov:SIMRAN DAVILA 07/28/18 Ibuprofen* (Motrin*) 600 Mg Tab, 600 MG PO Q6, #20 TAB Prov:ARGENTINA CARRASCO MD 08/09/17 Reported Medications Multivitamins* (Theragran*) 1 Tab Tab, 1 TAB PO DAILY, TAB 07/27/18 Allergies Allergies: Coded Allergies: No Known Allergies (Unverified Allergy, Mild, 08/11/18) PMhx/Soc History of Surgery: No Anesthesia Reaction: No Hx Neurological Disorder: No Hx Respiratory Disorders: No Hx Cardiac Disorders: No Hx Psychiatric Problems: No Hx Miscellaneous Medical Probl: Yes (arthritis) Hx Alcohol Use: No Hx Substance Use: No Hx Tobacco Use: No FmHx Family History: No diabetes, No coronary disease Physical Exam Vitals Vital Signs Date Temp Pulse Resp B/P (MAP) Pulse Ox O2 O2 Flow FiO2 Time Delivery Rate 09/13/18 98.8 84 18 137/63 98 18:57 (87) Physical Exam Const: No acute distress Head: Atraumatic Eyes: Normal Conjunctiva ENT: Normal External Ears, Nose and Mouth. Neck: Full range of motion. No meningismus. Resp: Clear to auscultation bilaterally Cardio: Regular rate and rhythm, no murmurs Abd: Soft, non tender, non distended. Normal bowel sounds Skin: No petechiae or rashes Back: No midline or flank tenderness Ext: No cyanosis, or edema Neur: Awake and alert Psych: Normal Mood and Affect Result Diagram: 09/13/18221009/13/182210 Results 24 hrs Laboratory Tests Test 09/13/18 22:11 09/13/18 22:19 White Blood Count 8.4 10^3/ul Red Blood Count 4.51 10^6/ul Hemoglobin 11.5 g/dl Hematocrit 36.0 % Mean Corpuscular Volume 79.8 fl Mean Corpuscular Hemoglobin 25.5 pg Mean Corpuscular Hemoglobin Concent 31.9 g/dl Red Cell Distribution Width 14.5 % Platelet Count 203 10^3/UL Mean Platelet Volume 9.8 fl Immature Granulocytes % 0.500 % Neutrophils % 70.8 % Lymphocytes % 22.5 % Monocytes % 4.9 % Eosinophils % 1.1 % Basophils % 0.2 % Nucleated Red Blood Cells % 0.0 /100WBC Immature Granulocytes # 0.040 10^3/ul Neutrophils # 6.0 10^3/ul Lymphocytes # 1.9 10^3/ul Monocytes # 0.4 10^3/ul Eosinophils # 0.1 10^3/ul Basophils # 0.0 10^3/ul Nucleated Red Blood Cells # 0.0 10^3/ul Erythrocyte Sedimentation Rate 11 mm/Hr Urine Color YELLOW Urine Clarity CLEAR Urine pH 5.[address] 1.018 Urine Ketones NEGATIVE mg/dL Urine Nitrite NEGATIVE mg/dL Urine Bilirubin NEGATIVE mg/dL Urine Urobilinogen NEGATIVE mg/dL Urine Leukocyte Esterase TRACE Francisco J/ul Urine Microscopic RBC 1 /HPF Urine Microscopic WBC 7 /HPF Urine Squamous Epithelial Cells FEW /HPF Urine Bacteria FEW /HPF Urine Mucus FEW /HPF Urine Hemoglobin NEGATIVE mg/dL Urine Glucose NEGATIVE mg/dL Urine Total Protein NEGATIVE mg/dl Sodium Level 142 mmol/L Potassium Level 3.6 mmol/L Chloride Level 104 mmol/L Carbon Dioxide Level 30 mmol/L Anion Gap 8 Blood Urea Nitrogen 11 mg/dl Creatinine 0.42 mg/dl Est Glomerular Filtrat Rate mL/min > 60 mL/min Glucose Level 210 mg/dl Calcium Level 9.4 mg/dl Troponin I < 0.012 ng/ml C-Reactive Protein 1.1 mg/dl POC Beta HCG, Qualitative NEGATIVE Current Medications Medications Dose Sig/Sandip Start Time Status Last (Trade) Ordered Route PRN Stop Time Admin Dose Reason Admin 100 mg ONCE ONCE 09/13/18 DC 09/13/18 Nitrofurantoi PO 23:30 23:23 n 09/13/18 23:31 Macrocrystals (Macrobid) Ketorolac 30 mg ONCE STAT 09/13/18 DC 09/13/18 Tromethamine IM 23:11 23:23 (Toradol) 09/13/18 23:12 Procedures/MDM ED course includes a thorough examination and history. ED course includes labs; CBC, CMP, inflammatory markers, troponin, influenza, urinalysis. Course includes radiology exams; chest x-ray to rule out pneumonia other cardiopulmonary pathology. ED course includes EKG. Low suspicion for life threatening medical emergency. Negative cardiac markers and EKG and chest x-ray. Anemia on labs stable and patient is hemodynamically stable. Otherwise healthy patient presenting with constellation of symptoms likely representing uncomplicated microcytic anemia and body aches as characterized by history, physical exam findings [radiologic/lab findings]. CBC showing microcytic anemia. Urinalysis showing trace leukocyte esterase, 7 WBCs, few bacteria. Chest x-ray negative. Influenza. Negative inflammatory markers. EKG @22:04: Rate/Rhythm: Normal Sinus Rhythm QRS, ST, T-waves: No changes consistent w/ acute ischemia Impression: No evidence of ischemia or arrhythmia No respiratory distress, otherwise relatively well appearing and nontoxic. Patient educated on diagnoses, prescriptions [Macrobid for UTI, iron for microcytic anemia, Vitamin C for microcytic anemia], follow-up care, return precautions. Strict return precautions given for worsening condition; questions answered discharge. Follow-up with PCP for repeat blood work for microcytic anemia in approximately 30 days. Will treat patient with ferrous sulfate due to symptomatic. Disposition for discharge with followup in 2-3 days with PCP/clinic. Departure Diagnosis: Primary Impression: Generalized body aches Additional Impressions: Hypochromic microcytic anemia UTI (urinary tract infection) Urinary tract infection type: site unspecified Hematuria presence: without hematuria Qualified Codes: N39.0 - Urinary tract infection, site not specified Condition: Stable Patient Instructions: Understanding Urinary Tract Infections (UTIs), Anemia, Iron Deficiency (Adult) Referrals: [facility] YOU HAVE RECEIVED A MEDICAL SCREENING EXAM AND THE RESULTS INDICATE THAT YOU DO NOT HAVE A CONDITION THAT REQUIRES URGENT TREATMENT IN THE EMERGENCY DEPARTMENT. FURTHER EVALUATION AND TREATMENT OF YOUR CONDITION CAN WAIT UNTIL YOU ARE SEEN IN YOUR DOCTORS OFFICE WITHIN THE NEXT 1-2 DAYS. IT IS YOUR RESPONSIBILITY TO MAKE AN APPOINTMENT FOR FOLOW-UP CARE. IF YOU HAVE A PRIMARY DOCTOR --you should call your primary doctor and schedule an appointment IF YOU DO NOT HAVE A PRIMARY DOCTOR YOU CAN CALL OUR PHYSICIAN REFERRAL HOTLINE AT IF YOU CAN NOT AFFORD TO SEE A PHYSICIAN YOU CAN CHOSE FROM THE FOLLOWING [facility] [address] [facility] [address] [facility] [address] [facility] [address] [facility] [address] [facility]. [facility] [address] [facility]. [facility] YOU HAVE RECEIVED A MEDICAL SCREENING EXAM AND THE RESULTS INDICATE THAT YOU DO NOT HAVE A CONDITION THAT REQUIRES URGENT TREATMENT IN THE EMERGENCY DEPARTMENT. FURTHER EVALUATION AND TREATMENT OF YOUR CONDITION CAN WAIT UNTIL YOU ARE SEEN IN YOUR DOCTORS OFFICE WITHIN THE NEXT 1-2 DAYS. IT IS YOUR RESPONSIBILITY TO MAKE AN APPOINTMENT FOR FOLOW-UP CARE. IF YOU HAVE A PRIMARY DOCTOR --you should call your primary doctor and schedule and appointment IF YOU DO NOT HAVE A PRIMARY DOCTOR YOU CAN CALL OUR PHYSICIAN REFERRAL HOTLINE AT . IF YOU CAN NOT AFFORD TO SEE A PHYSICIAN YOU CAN CHOSE FROM THE FOLLOWING [facility]: [facility] [address] [place] [address] [facility] [address] [place] [address] [facility] [address] [place] [address] Additional Instructions: Call your primary care doctor TOMORROW for an appointment during the next 2-3 days.See the doctor sooner or return here if your condition worsens before your appointment time. Follow-up with primary care for reevaluation of your urinary tract infection. Symptoms should decrease with antibiotics. Very mild anemia today, will treat due to symptoms of shortness of breath, encouraged to have a CBC recheck in 1 month with primary care doctor at clinic. Return to ER if symptoms of trouble breathing, feeling like you are going to pass out, passing out, shortness of breath, heart racing. NELSON ABRAMS NP Sep 14, 2018 00:26
[2018-09-14 00:33] VITALS: BP 138/76; PULSE 77; RESP 19
== END 2018-09-14 00:40 | disposition home or self-care (01) ==
LOC: FTE 18:50
DX: D50.9 Iron deficiency anemia, unspecified (principal); N39.0 Urinary tract infection, site not specified; R06.02 Shortness of breath
CPT/HCPCS: 36415; 71046; 80048; 81001; 81025; 84484; 85025; 85651; 86140; 87400; 93005; 96372; J1885; Z7502; Z7610

== ENCOUNTER 2018-09-24 19:44 | Emergency (ER) | payer MEDICAID, OTHER ==
[~2018-09-24] VITALS: Wt 86.8 kg
[~2018-09-24 19:44] MED LIST changes: +ASCO500C7 PO; +FERR220S19 PO; +NAPR-985 PO; +NITR-58 PO
[2018-09-24 19:51] VITALS: RESP 18
[2018-09-25] MEDS ORDERED: KETOROLAC 30 MG INJ IM STA (02:21)
[2018-09-25] MEDS ORDERED: NAPR-985 PO (02:49)
[2018-09-25 03:06] VITALS: BP 153/87; PULSE 71
--- NOTE | 2018-10-01 19:53 | ERD ---
ER Documentation Chief Complaint Chief Complaint GENERALIZED BODY PAIN X'S 2 WEEKS HPI 53-year-old female patient with no significant past medical history presents to ED complaining of a headache, pulsating sensation. Patient denies any nausea, vomiting, diarrhea, neck stiffness, chest pain, dyspnea on exertion. Denies any head or neck injuries. Patient reports that she feels like she has body aches. ROS All systems reviewed and are negative except as per history of present illness. Medications Home Meds Active Scripts Naproxen* (Naprosyn*) 500 Mg Tablet, 500 MG PO BID PRN for PAIN AND/OR INFLAMMATION, #60 TAB Prov:NELSON ABRAMS NP 10/04/18 Naproxen* (Naprosyn*) 500 Mg Tablet, 500 MG PO BID PRN for PAIN AND/OR INFLAMMATION, #30 TAB Prov:PAULINA GARCIA PA-C 09/25/18 Ascorbic Acid* (Vitamin C*) 500 Mg Capsule.sa, 500 MG PO DAILY for better iron absorbtion, #30 CAP take with iron daily; vitamin c will assist with better irob absorbtion Prov:NELSON ABRAMS NP 09/13/18 Ferrous Sulfate (Ferrous Sulfate) 220 Mg/5 Ml Solution, 220 MG PO DAILY for 30 Days Prov:NELSON ABRAMS NP 09/13/18 Naproxen* (Naprosyn*) 500 Mg Tablet, 500 MG PO BID PRN for PAIN AND/OR INFLAMMATION, #30 TAB Prov:NELSON ABRAMS NP 09/13/18 Nitrofurantoin Monohyd Macrocr* (Macrobid*) 100 Mg Capsr, 100 MG PO HS for urine infection for 7 Days, CAP Prov:NELSON ABRAMS NP 09/13/18 Ibuprofen* (Motrin*) 400 Mg Tab, 400 MG PO Q6H PRN for PAIN AND OR ELEVATED TEMP, #30 TAB Prov:KATERINA AZEVEDO PA-C 08/16/18 Acetamin/Butalbital/Caffeine* (Fioricet*) [id number] Tab, 1 TAB PO Q6H PRN for PAIN, #30 TAB Prov:STEPHANIE KONG DO 08/11/18 Ibuprofen* (Motrin*) 600 Mg Tab, 600 MG PO Q6H PRN for PAIN AND OR ELEVATED TEMP, #30 TAB Prov:ANKITA IRBY MD 08/10/18 Atenolol* (Atenolol*) 25 Mg Tablet, 25 MG PO DAILY, #30 TAB Prov:JORGE STARK MD 08/06/18 Cyclobenzaprine Hcl* (Cyclobenzaprine Hcl*) 10 Mg Tablet, 10 MG PO TID, #20 TAB Prov:ARGENTINA CARRASCO MD 08/03/18 Ibuprofen* (Motrin*) 600 Mg Tab, 600 MG PO Q6, #30 TAB Prov:ARGENTINA CARRASCO MD 08/03/18 Lorazepam* (Ativan*) 0.5 Mg Tablet, 0.5 MG PO Q8H PRN for ANXIETY, #10 TAB Prov:SIMRAN DAVILA 07/28/18 Ibuprofen* (Motrin*) 600 Mg Tab, 600 MG PO Q6, #20 TAB Prov:ARGENTINA CARRASCO MD 08/09/17 Reported Medications Multivitamins* (Theragran*) 1 Tab Tab, 1 TAB PO DAILY, TAB 07/27/18 Allergies Allergies: Coded Allergies: No Known Allergies (Unverified Allergy, Mild, 08/11/18) PMhx/Soc History of Surgery: No Anesthesia Reaction: No Hx Neurological Disorder: No Hx Respiratory Disorders: No Hx Cardiac Disorders: No Hx Psychiatric Problems: No Hx Miscellaneous Medical Probl: Yes (arthritis) Hx Alcohol Use: No Hx Substance Use: No Hx Tobacco Use: No FmHx Family History: No diabetes, No coronary disease Physical Exam Vitals Temperature 98.2 Pulse 95 Systolic blood pressure 164 Diastolic blood pressure 80 Respiratory rate 18 O2 sat 98 Physical Exam Const: No acute distress Head: Atraumatic Eyes: Normal Conjunctiva ENT: Normal External Ears, Nose and Mouth. Neck: Full range of motion. No meningismus. Resp: Clear to auscultation bilaterally Cardio: Regular rate and rhythm, no murmurs Abd: Soft, non tender, non distended. Normal bowel sounds Skin: No petechiae or rashes Back: No midline or flank tenderness Ext: No cyanosis, or edema Neur: Awake and alert Psych: Normal Mood and Affect Results 24 hrs Current Medications Medications Dose Sig/Sandip Start Time Status Last (Trade) Ordered Route PRN Stop Time Admin Dose Reason Admin Ketorolac 30 mg ONCE STAT 09/25/18 DC 09/25/18 Tromethamine IM 02:21 09/25/18 02:31 (Toradol) 02:24 Procedures/MDM 53-year-old female patient with no significant past medical history presents to ED complaining of body aches and pains that started 2 weeks ago. Patient reports that the Toradol 60 mg IM has helped with her pain previously and stated that she wanted an injection. Patient was seen here many times for the same complaint. Patient was here for a refill for naproxen, therefore it was refilled at this time. Low suspicion for acute myocardial infarction, pneumothorax, pericarditis, myocarditis, endocarditis, pneumonia, cardiac tamponade, pulmonary embolism, pleural effusion, AAA, aortic dissection, Boerhaave's syndrome, cardiac dysrhythmias,meningitis, intracranial bleed, seizure, stroke, TIA or other emergent conditions. Diagnosis: Pain Discharge medications: Naproxen Follow up with primary care physician in 1-2 days. Instructed patient to return to the ED sooner for any worsening symptoms. Patient's questions were answered. Patient is hemodynamically stable. Patient understood and agreed with discharge plan. Patient discharged stable. Disclaimer: Inadvertent spelling and grammatical errors are likely due to EHR/dictation software use and do not reflect on the overall quality of patient care. Also, please note that the electronic time recorded on this note does not necessarily reflect the actual time of the patient encounter. Departure Diagnosis: Primary Impression: Pain Condition: Stable Patient Instructions: Pain Management, Osteoarthritis: Common Sites, Osteoarthritis: Coping with Pain, Osteoarthritis: Managing Pain, Myalgias Referrals: [facility]) Usted se raza hecho un examen mdico de control que le indica que no est en edgardo condicin que requiera tratamiento urgente en el Departamento de Emergencia. Un estudio ms profundo y el tratamiento de conde condicin pueden esperar sin ningn riesgo hasta que usted sea atendida/o en el consultorio de conde mdico o edgardo clnica. Es responsabilidad suya arreglar edgardo nadine para el seguimiento del rc. MANEJO DE CONDICIONES NO URGENTES EN EL FUTURO 1) Si usted tiene un mdico de atencin primaria: Usted debera llamar a conde mdico de atencin primaria antes de venir al departamento de emergencia. Despus de las horas de consultorio, conde doctor o conde asociado/a est disponible por telfono. El mdico o enfermero de elvia en el servicio telefnico puede asesorarle por eunice medio para atender el problema, o rc contrario se puede programar edgardo nadine. 2) Si usted no tiene un mdico de atencin primaria: Llame al mdico o clnica de referencia que aparece abajo [place]aqu[place] las horas de consultorio para hacer edgardo nadine para que le vean. CLINICAS: [facility] [phone] [address] [facility] [phone] [address] [facility] [phone] 2[address] [facility]. [facility] [phone] [address] [facility]. [facility] [phone] [facility]. [phone] [address] [facility]. [facility] () Oc se raza hecho un examen mdico de control que le indica que no est en edgardo condicin que requiera tratamiento urgente en el Departamento de Emergencia. Un estudio ms profundo y el tratamiento de conde condicin pueden esperar sin ningn riesgo hasta que usted sea atendida/o en el consultorio de conde mdico o edgardo clnica. Es responsabilidad suya arreglar edgardo nadine para el seguimiento del rc. MANEJO DE CONDICIONES NO URGENTES EN EL FUTURO 1) Si usted tiene un mdico de atencin primaria: Usted debera llamar a conde mdico de atencin primaria antes de venir al departamento de emergencia. Despus de las horas de consultorio, conde doctor o conde asociado/a est disponible por telfono. El mdico o enfermero de elvia en el servicio telefnico puede asesorarle por eunice medio para atender el problema, o rc contrario se puede programar edgardo nadine. 2) Si usted no tiene un mdico de atencin primaria: Llame al mdico o condado institucions de referencia que aparece abajo [place]aqu[place] las horas de consultorio para hacer edgardo nadine para que le vean. SI USTED NO PUEDE PAGAR PARA GIOVANNA UN MEDICO puede ir a: [facility] [address] [place] [address] [facility] [address] [place] [address] [facility] [address] [place] [address] [facility] [address] [place] [address] [facility] YOU HAVE RECEIVED A MEDICAL SCREENING EXAM AND THE RESULTS INDICATE THAT YOU DO NOT HAVE A CONDITION THAT REQUIRES URGENT TREATMENT IN THE EMERGENCY DEPARTMENT. FURTHER EVALUATION AND TREATMENT OF YOUR CONDITION CAN WAIT UNTIL YOU ARE SEEN IN YOUR DOCTORS OFFICE WITHIN THE NEXT 1-2 DAYS. IT IS YOUR RESPONSIBILITY TO MAKE AN APPOINTMENT FOR FOLOW-UP CARE. IF YOU HAVE A PRIMARY DOCTOR --you should call your primary doctor and schedule an appointment IF YOU DO NOT HAVE A PRIMARY DOCTOR YOU CAN CALL OUR PHYSICIAN REFERRAL HOTLINE AT IF YOU CAN NOT AFFORD TO SEE A PHYSICIAN YOU CAN CHOSE FROM THE FOLLOWING [facility] [address] [facility]. [facility] [address] [facility] [facility] [address] [facility]. [facility] [address] [facility]. [facility] [address] [facility]. [facility]. [address] Additional Instructions: Llame al doctor MAANA y lorraine edgardo NADINE PARA DENTRO DE 2-3 ESQUIVEL.Dgale a la secretaria que nosotros le instruimos hacer esta nadine.Avise o llame si conde condicin se empeora antes de la nadine. Regresa aqui si peor o no mejor. PAULINA GARCIA PA-C Oct 01, 2018 19:53
== END 2018-09-25 03:07 | disposition home or self-care (01) ==
LOC: FTE 19:44
DX: R51 Headache (principal)
CPT/HCPCS: 96372; J1885

== ENCOUNTER 2018-10-04 09:04 | Emergency (ER) | payer MEDICAID ==
[~2018-10-04] VITALS: Ht 157.5 cm; Wt 87.9 kg
[2018-10-04 09:07] VITALS: Ht 157.5 cm; Wt 87.9 kg
[2018-10-04] MEDS ORDERED: NAPR-985 PO (14:18)
[2018-10-04 14:33] VITALS: BP 160/77; PULSE 71; RESP 18
--- NOTE | 2018-10-04 18:33 | ERD ---
ER Documentation Chief Complaint Chief Complaint body weakness x 3 weeks with intermittent "Fast heartbeat"x 4 days HPI 53-year-old female year-old [female/male] coming in today with Chief Complaint: Weakness and palpitations History of Present Illness: Patient reporting weakness unchanged and nonprogressive for 3 weeks. Associated symptoms includes pain to bilateral arms, bilateral legs, bilateral feet. Associated symptoms include palpitations for 4 days, intermittently, left-sided chest pain. No signs of respiratory distress. Patient speaking in clear sentences. No signs of physical pain. Review of systems: All systems were reviewed and are negative except for what is indicated in the history of present illness. Past Medical History: Negative for hypertension, diabetes or other medical problems Social History: Patient denies tobacco, alcohol, elicit drug use Medications: None Allergies: NKDA Social Concerns: Denies ROS All systems reviewed and are negative except as per history of present illness. Medications Home Meds Active Scripts Naproxen* (Naprosyn*) 500 Mg Tablet, 500 MG PO BID PRN for PAIN AND/OR INFLAMMATION, #60 TAB Prov:NELSON ABRAMS NP 10/04/18 Naproxen* (Naprosyn*) 500 Mg Tablet, 500 MG PO BID PRN for PAIN AND/OR INFLAMMATION, #30 TAB Prov:PAULINA GARCIA PA-C 09/25/18 Ascorbic Acid* (Vitamin C*) 500 Mg Capsule.sa, 500 MG PO DAILY for better iron absorbtion, #30 CAP take with iron daily; vitamin c will assist with better irob absorbtion Prov:NELSON ABRAMS NP 09/13/18 Ferrous Sulfate (Ferrous Sulfate) 220 Mg/5 Ml Solution, 220 MG PO DAILY for 30 Days Prov:NELSON ABRAMS NP 09/13/18 Naproxen* (Naprosyn*) 500 Mg Tablet, 500 MG PO BID PRN for PAIN AND/OR INFLAMMATION, #30 TAB Prov:NELSON ABRAMS NP 09/13/18 Nitrofurantoin Monohyd Macrocr* (Macrobid*) 100 Mg Capsr, 100 MG PO HS for urine infection for 7 Days, CAP Prov:NELSON ABRAMS NP 09/13/18 Ibuprofen* (Motrin*) 400 Mg Tab, 400 MG PO Q6H PRN for PAIN AND OR ELEVATED TEMP, #30 TAB Prov:KATERINA AZEVEDO PA-C 08/16/18 Acetamin/Butalbital/Caffeine* (Fioricet*) [id number] Tab, 1 TAB PO Q6H PRN for PAIN, #30 TAB Prov:STEPHANIE KONG DO 08/11/18 Ibuprofen* (Motrin*) 600 Mg Tab, 600 MG PO Q6H PRN for PAIN AND OR ELEVATED TEMP, #30 TAB Prov:ANKITA IRBY MD 08/10/18 Atenolol* (Atenolol*) 25 Mg Tablet, 25 MG PO DAILY, #30 TAB Prov:JORGE STARK MD 08/06/18 Cyclobenzaprine Hcl* (Cyclobenzaprine Hcl*) 10 Mg Tablet, 10 MG PO TID, #20 TAB Prov:ARGENTINA CARRASCO MD 08/03/18 Ibuprofen* (Motrin*) 600 Mg Tab, 600 MG PO Q6, #30 TAB Prov:ARGENTINA CARRASCO MD 08/03/18 Lorazepam* (Ativan*) 0.5 Mg Tablet, 0.5 MG PO Q8H PRN for ANXIETY, #10 TAB Prov:SIMRAN DAVILA 07/28/18 Ibuprofen* (Motrin*) 600 Mg Tab, 600 MG PO Q6, #20 TAB Prov:ARGENTINA CARRASCO MD 08/09/17 Reported Medications Multivitamins* (Theragran*) 1 Tab Tab, 1 TAB PO DAILY, TAB 07/27/18 Allergies Allergies: Coded Allergies: No Known Allergies (Unverified Allergy, Mild, 08/11/18) PMhx/Soc History of Surgery: No Anesthesia Reaction: No Hx Neurological Disorder: No Hx Respiratory Disorders: No Hx Cardiac Disorders: No Hx Psychiatric Problems: No Hx Miscellaneous Medical Probl: Yes (arthritis) Hx Alcohol Use: No Hx Substance Use: No Hx Tobacco Use: No Smoking Status: Never smoker FmHx Family History: No diabetes, No coronary disease Physical Exam Vitals Vital Signs Date Temp Pulse Resp B/P (MAP) Pulse Ox O2 O2 Flow FiO2 Time Delivery Rate 10/04/18 98.6 71 18 160/77 100 Room Air 14:33 (104) 10/04/18 96.9 78 18 152/71 99 09:07 (98) Physical Exam Const: No acute distress Head: Atraumatic Eyes: Normal Conjunctiva ENT: Normal External Ears, Nose and Mouth. Neck: Full range of motion. No meningismus. Resp: Clear to auscultation bilaterally Cardio: Regular rate and rhythm, no murmurs Abd: Soft, non tender, non distended. Normal bowel sounds Skin: No petechiae or rashes Back: No midline or flank tenderness Ext: No cyanosis, or edema Neur: Awake and alert Psych: Normal Mood and Affect Result Diagram: 10/04/18 1202 10/04/18 1202 Results 24 hrs Laboratory Tests Test 10/04/18 12:02 White Blood Count 6.4 10^3/ul Red Blood Count 4.60 10^6/ul Hemoglobin 12.0 g/dl Hematocrit 38.0 % Mean Corpuscular Volume 82.6 fl Mean Corpuscular Hemoglobin 26.1 pg Mean Corpuscular Hemoglobin Concent 31.6 g/dl Red Cell Distribution Width 14.6 % Platelet Count 194 10^3/UL Mean Platelet Volume 10.2 fl Immature Granulocytes % 0.200 % Neutrophils % 63.9 % Lymphocytes % 28.5 % Monocytes % 5.5 % Eosinophils % 1.6 % Basophils % 0.3 % Nucleated Red Blood Cells % 0.0 /100WBC Immature Granulocytes # 0.010 10^3/ul Neutrophils # 4.1 10^3/ul Lymphocytes # 1.8 10^3/ul Monocytes # 0.4 10^3/ul Eosinophils # 0.1 10^3/ul Basophils # 0.0 10^3/ul Nucleated Red Blood Cells # 0.0 10^3/ul Urine Color STRAW Urine Clarity CLEAR Urine pH 7.0 Urine Specific Britton 1.010 Urine Ketones NEGATIVE mg/dL Urine Nitrite NEGATIVE mg/dL Urine Bilirubin NEGATIVE mg/dL Urine Urobilinogen NEGATIVE mg/dL Urine Leukocyte Esterase NEGATIVE Francisco J/ul Urine Hemoglobin NEGATIVE mg/dL Urine Glucose NEGATIVE mg/dL Urine Total Protein NEGATIVE mg/dl Sodium Level 144 mmol/L Potassium Level 4.3 mmol/L Chloride Level 103 mmol/L Carbon Dioxide Level 30 mmol/L Anion Gap 11 Blood Urea Nitrogen 12 mg/dl Creatinine 0.40 mg/dl Est Glomerular Filtrat Rate mL/min > 60 mL/min Glucose Level 161 mg/dl Calcium Level 9.6 mg/dl Creatine Kinase 47 IU/L Creatine Kinase Index 1.2 Creatinine Kinase MB (Mass) 0.56 ng/ml Troponin I < 0.012 ng/ml Procedures/MDM ED course includes a thorough examination and history. Due to patient complaint of palpitations and chest pain, will order labs. ED course includes laboratory studies; CBC, CMP, cardiac enzymes, urinalysis. ED course includes imaging; chest x-ray. Low suspicion for life-threatening medical emergency. Patient denies weakness, dizziness, or neurological symptoms. Otherwise healthy patient presenting with constellation of symptoms likely representing intermittent palpitations as characterized by history, physical e xam findings, radiologic and lab findings. CBC within normal limits (patient reporting recently completing course of medications for anemia, hemoglobin and hematocrit stable at this time), CMP within normal limits, cardiac enzymes negative, urinalysis unremarkable. Chest x-ray showing mild central venous congestion and mild atelectasis; patient with no signs of respiratory distress and lungs clear to auscultation. EKG @1144 Rate/Rhythm: Normal Sinus Rhythm QRS, ST, T-waves: No changes consistent w/ acute ischemia Impression: No evidence of ischemia or arrhythmia No respiratory distress, otherwise relatively well appearing and nontoxic. Patient educated on diagnoses, prescriptions, follow-up care, return precautions. Strict return precautions given for worsening condition; questions answered discharge. Patient given education for return precautions for things that are emergent that requires ED visit and things that would likely be for outpatient with the clinic. Patient wanting medication Naprosyn for her pain in her joints. Reports that I will refill one time and patient must follow-up with primary care doctor for further refills. Disposition for discharge with followup in 2 days with PCP/clinic for reevaluation of symptoms . Departure Diagnosis: Primary Impression: Myalgia Additional Impression: Intermittent palpitations Condition: Stable Patient Instructions: Myalgias, Palpitations Referrals: COMM[facility] CL[facility] YOU HAVE RECEIVED A MEDICAL SCREENING EXAM AND THE RESULTS INDICATE THAT YOU DO NOT HAVE A CONDITION THAT REQUIRES URGENT TREATMENT IN THE EMERGENCY DEPARTMENT. FURTHER EVALUATION AND TREATMENT OF YOUR CONDITION CAN WAIT UNTIL YOU ARE SEEN IN YOUR DOCTORS OFFICE WITHIN THE NEXT 1-2 DAYS. IT IS YOUR RESPONSIBILITY TO MAKE AN APPOINTMENT FOR FOLOW-UP CARE. IF YOU HAVE A PRIMARY DOCTOR --you should call your primary doctor and schedule an appointment IF YOU DO NOT HAVE A PRIMARY DOCTOR YOU CAN CALL OUR PHYSICIAN REFERRAL HOTLINE AT IF YOU CAN NOT AFFORD TO SEE A PHYSICIAN YOU CAN CHOSE FROM THE FOLLOWING [facility] [address] [facility] [address] [facility] [address] [facility] [address] [facility] [address] [facility]. [facility] [address] [facility]. [facility] YOU HAVE RECEIVED A MEDICAL SCREENING EXAM AND THE RESULTS INDICATE THAT YOU DO NOT HAVE A CONDITION THAT REQUIRES URGENT TREATMENT IN THE EMERGENCY DEPARTMENT. FURTHER EVALUATION AND TREATMENT OF YOUR CONDITION CAN WAIT UNTIL YOU ARE SEEN IN YOUR DOCTORS OFFICE WITHIN THE NEXT 1-2 DAYS. IT IS YOUR RESPONSIBILITY TO MAKE AN APPOINTMENT FOR FOLOW-UP CARE. IF YOU HAVE A PRIMARY DOCTOR --you should call your primary doctor and schedule and appointment IF YOU DO NOT HAVE A PRIMARY DOCTOR YOU CAN CALL OUR PHYSICIAN REFERRAL HOTLINE AT . IF YOU CAN NOT AFFORD TO SEE A PHYSICIAN YOU CAN CHOSE FROM THE FOLLOWING [facility]: [facility] [address] [place] [address] [facility] [address] [place] [address] [facility] [address] [place] [address] Additional Instructions: Call your primary care doctor TOMORROW for an appointment during the next 2-3 days.See the doctor sooner or return here if your condition worsens before your appointment time. Blood work is currently normal, no signs of anemia. Electrolytes were within normal limits. Cardiac blood tests were negative. EKG was normal. Your primary care doctor/clinic can prescribe you medications for body aches to your knees, arms, feet. Please see them for further prescriptions, no need to return to ER for the symptoms. If numbness, tingling, inability to walk, decreased sensation, to one side of body, then return to ER. Llame a lanier mdico de atencin primaria MAANA para edgardo malvin shaquille los prximos 2 a 3 carreon. Consulte al mdico antes o vuelva aqu si lanier afeccin empeora antes de la hora de lanier malvin. El anlisis de russ actualmente es normal, no hay signos de anemia. Los electrolitos estaban dentro de los lmites normales. Los anlisis de russ cardacos fueron negativos. EKG era normal. Lanier mdico / clnica de atencin primaria puede recetarle medicamentos para los columba corporales en las rodillas, los brazos y los pies. Consltelos para obtener ms recetas, no es necesario volver a la tisha de emergencias para los sntomas. Si hay adormecimiento, hormigueo, incapacidad para caminar, disminucin de la sensacin hacia un lado del cuerpo, vuelva a la tisha de emergencias. NELSON ABRAMS NP Oct 04, 2018 18:33
== END 2018-10-04 14:34 | disposition home or self-care (01) ==
LOC: FTE 09:04
DX: M79.10 Myalgia, unspecified site (principal); R00.2 Palpitations
CPT/HCPCS: 36415; 71045; 80048; 81003; 82550; 82553; 84484; 85025; 93005; Z7502